=== PATIENT | male | born 1950 | race Caucasian/White ===

== ENCOUNTER 2021-02-01 11:00 | Day surgery (SDC) | payer MEDICARE, OTHER ==
[~2021-02-01] VITALS: Ht 177.8 cm; Wt 72.8 kg
[2021-02-01] VITALS (7 sets, daily range): BP systolic 176–188; BP diastolic 82–91
[~2021-02-01 11:00] MED LIST: LIDOcaine 1% 30ml preserv. free vial IJ STA
[2021-02-01] MEDS ORDERED: ROSU20TA2 PO (11:35)
[2021-02-01] MEDS ORDERED: METO-411 PO (11:37)
[2021-02-01] MEDS ORDERED: CYAN500T46 PO (11:38)
[2021-02-01] MEDS ORDERED: CLOP75TA15 PO (11:39)
[2021-02-01] MEDS ORDERED: HYDR25TA5 PO (11:39)
[2021-02-01] MEDS ORDERED: DILT120T3 PO ×2 (11:41→11:45)
[2021-02-01] MEDS ORDERED: DILT120T4 PO (11:46)
[2021-02-01 15:44] LABS: BFAPPEAR CLOUDY; BFCOLOR RED; BFVOLUME 13 ML
[2021-02-01 15:45] LABS: BF RBC COUNT 8200 /CU MM; BF WBC COUNT 400 /CU MM (0-1000); LYMPHOCYTES,BODY FLUID 10 %; MONOCYTES,BODY FLUID 10 %; NEUTROPHILS,BODY FLUID 80 %
== END 2021-02-01 14:15 | disposition home or self-care (01) ==
LOC: SSTAY O 11:00
PROVIDERS: ATTEND Radiology Diagnostic Radiology
DX: R19.09 Other intra-abdominal and pelvic swelling, mass and lump (principal)
CPT/HCPCS: 10005; 87070; 88173; 88305; 89051